=== PATIENT | male | born 1990 | race Caucasian/White ===

== ENCOUNTER 2020-09-17 19:36 | Emergency (ER) | payer MEDICAID, SELFPAY ==
[2020-09-17 19:47] VITALS: BP 116/75; PULSE 102; RESP 18; TEMP 36.6; O2SAT 98; BMI 28.1
[2020-09-17 19:50] VITALS: BP 117/80; PULSE 90; RESP 16; TEMP 37; O2SAT 97
--- NOTE | 2020-09-17 20:52 | ED.SKABFB ---
HPI - Skin/Abscess/Foreign Bdy General Chief complaint: Skin/Abscess/Foreign Body <Tayler Spencer NP - Last Filed: 09/17/20 21:02> Stated complaint: facial swelling <Tayler Spencer NP - Last Filed: 09/17/20 21:02> Time Seen by Provider: 09/17/20 19:55 <Tayler Spencer NP - Last Filed: 09/17/20 21:02> Source: patient <Tayler Spencer NP - Last Filed: 09/17/20 21:02> Mode of arrival: ambulatory <Tayler Spencer NP - Last Filed: 09/17/20 21:02> Limitations: no limitations <Tayler Spencer NP - Last Filed: 09/17/20 21:02> History of Present Illness HPI narrative: 30 yo male with past medical history of substance abuse currently on methadone x 3 days here with left facial tenderness/swelling and erythema since waking this morning. No fevers/chills. <Talyer Spencer NP - Last Filed: 09/17/20 21:02> MD complaint: other (redness/swelling/tenderness ) <Tayler Spencer NP - Last Filed: 09/17/20 21:02> Onset (ago): hour(s) <Tayler Spencer NP - Last Filed: 09/17/20 21:02> Tetanus up to date: no <Tayler Spencer NP - Last Filed: 09/17/20 21:02> Location: face <Tayler Spencer NP - Last Filed: 09/17/20 21:02> Severity: moderate <Tayler Spencer NP - Last Filed: 09/17/20 21:02> Quality: aching <Tayler Spencer NP - Last Filed: 09/17/20 21:02> Pain Consistency: intermittent <Tayler Spencer NP - Last Filed: 09/17/20 21:02> Relieving factors: none <Taylre Spencer NP - Last Filed: 09/17/20 21:02> Exacerbating factors: none <Tayler Spencer NP - Last Filed: 09/17/20 21:02> Context: none <Tayler Spencer NP - Last Filed: 09/17/20 21:02> Treatments prior to arrival: none <Tayler Spencer NP - Last Filed: 09/17/20 21:02> Related Data Allergies/Adverse reactions: Allergies Allergy/AdvReac Type Severity Reaction Status Date / Time No Known Allergies Allergy Unverified 09/17/20 19:47 <Tayler Spencer NP - Last Filed: 09/17/20 21:02> Review of Systems Review of Systems: Yes all other systems are reviewed and are negative <Tayler Spencer NP - Last Filed: 09/17/20 21:02> Constitutional: Constitutional: Reports no additional constitutional complaints, Denies body ache(s), Denies chills, Denies fever(s), Denies headache(s) and Denies weakness <Tayler Spencer NP - Last Filed: 09/17/20 21:02> Eyes: Eyes: Reports no additional eye complaints, Denies change in vision and Denies eye pain <Tayler Spencer NP - Last Filed: 09/17/20 21:02> ENT: Reports system reviewed and no additional complaints, except as documented, Denies dizziness, Denies headache(s), Denies nasal congestion, Denies nasal discharge and Denies neck pain <Tayler Spencer NP - Last Filed: 09/17/20 21:02> Comments: facial pain, swelling, dental pain <Tayler Spencer NP - Last Filed: 09/17/20 21:02> Cardiovascular: Cardiovascular: Reports no additional cardiovascular complaints, Denies chest pain, Denies leg edema and Denies dyspnea <Tayler Spencer NP - Last Filed: 09/17/20 21:02> Respiratory: Respiratory: Reports no additional respiratory complaints, Denies cough and Denies dyspnea <Tayler Spencer NP - Last Filed: 09/17/20 21:02> Gastrointestinal: Gastrointestinal: Reports no additional gastrointestinal complaints, Denies abdominal pain, Denies diarrhea, Denies nausea and Denies vomiting <Tayler Spencer NP - Last Filed: 09/17/20 21:02> Genitourinary: Genitourinary: Denies urinary incontinence <Tayler Spencer NP - Last Filed: 09/17/20 21:02> Musculoskeletal: Musculoskeletal: Reports no additional musculoskeletal complaints, Denies back pain, Denies arthralgias, Denies joint swelling, Denies neck pain, Denies numbness and Denies tingling <Tayler Spencer NP - Last Filed: 09/17/20 21:02> Integumentary/Breasts: Skin/Breast: Reports system reviewed and no additional complaints, except as docu and Denies rash <Tayler Spencer NP - Last Filed: 09/17/20 21:02> Neurologic: Reports system reviewed and no additional complaints, except as documented, Denies Abnormal speech present, Denies dizziness, Denies headache(s), Denies numbness, Denies tingling and Denies weakness <Tayler Spencer NP - Last Filed: 09/17/20 21:02> FORMERLY [facility], [facility] Past Medical History Attestation statement: The following information was validated with the patient. <Tayler Spencer NP - Last Filed: 09/17/20 21:02> Source: old records reviewed and nursing notes reviewed <Tayler Spencer NP - Last Filed: 09/17/20 21:02> Medical History: Medical History Opioid dependence <Tayler Spencer NP - Last Filed: 09/17/20 21:02> Social History Social History: Social History Alcohol intake: never Smoking Status: Current every day smoker Smoked in Last 30 Days: Yes Use of substances other than those prescribed or required for medical reasons: No Advance Directives: No Advance Directives Information Provided: No <Tayler Spencer NP - Last Filed: 09/17/20 21:02> Physical Exam Vital Signs: Vital Signs: Last Vital Signs Temp 98.6 F 09/17/20 19:50 Pulse 90 01/23/21 19:50 Resp 16 09/17/20 19:50 BP 117/80 09/17/20 19:50 Pulse Ox 97 09/17/20 19:50 Body Mass Index 28.1 <Tayler Spencer NP - Last Filed: 09/17/20 21:02> Vital Signs: Last Vital Signs Temp 98.6 F 09/17/20 19:50 Pulse 90 09/17/20 19:50 Resp 16 09/17/20 19:50 BP 117/80 09/17/20 19:50 Pulse Ox 97 09/17/20 19:50 Body Mass Index 28.1 <Sue Silva DO - Last Filed: 09/17/20 21:38> Const: General: cooperative, healthy appearing, comfortable and no acute distress <Tayler Spencer NP - Last Filed: 09/17/20 21:02> Orientation/consciousness: patient oriented x3 <Tayler Spencer NP - Last Filed: 09/17/20 21:02> Limitations: no limitations <Tayler Spencer NP - Last Filed: 09/17/20 21:02> HENMT: Other: Over the left mid face there is erythema/swelling and moderate tenderness with induration. It extends to just inferior to the eye. EOM intact. <Tayler Spencer NP - Last Filed: 09/17/20 21:02> Head: Yes normal to inspection <Tayler Spencer NP - Last Filed: 09/17/20 21:02> Ears: hearing grossly normal bilaterally <Tayler Spencer NP - Last Filed: 09/17/20 21:02> General nose exam: Normal external nose present <Tayler Spencer NP - Last Filed: 09/17/20 21:02> Mouth: Normal oral and palatal mucosa present <Tayler Spencer NP - Last Filed: 09/17/20 21:02> Teeth and gingiva: poor dentition (extensive dental caries, multiple missing teeth) <Tayler Spencer NP - Last Filed: 09/17/20 21:02> Throat: Yes posterior oropharynx normal <RINA Brandt Last Filed: 09/17/20 21:02> Eyes: General: appearance normal, both eyes and all related structures <Tayler Spencer NP - Last Filed: 09/17/20 21:02> Pupils: Equal, round and reactive pupils present <Tayler Spencer NP - Last Filed: 09/17/20 21:02> Neck: Neck: Yes normal visual inspection <Tayler Spencer NP - Last Filed: 09/17/20 21:02> Chest: Chest palpation & inspection: normal inspection of the chest <Tayler Spencer NP - Last Filed: 09/17/20 21:02> Resp: Effort & Inspection: normal respiratory effort <Tayler Spencer NP - Last Filed: 09/17/20 21:02> Auscultation: clear to auscultation bilaterally <Tayler Spencer NP - Last Filed: 09/17/20 21:02> Cardio: Rate: regular rate <Tayler Spencer NP - Last Filed: 09/17/20 21:02> Rhythm: regular rhythm <Tayler Spencer NP - Last Filed: 09/17/20 21:02> Peripheral pulses: Peripheral pulses 2+ throughout <Tayler Spencer NP - Last Filed: 09/17/20 21:02> GI: Inspection: Yes normal to inspection <Tayler Spencer NP - Last Filed: 09/17/20 21:02> Palpation (GI): Soft to palpation and nontender <Tayler Spencer NP - Last Filed: 09/17/20 21:02> Auscultation: normal bowel sounds <Tayler Spencer NP - Last Filed: 09/17/20 21:02> Back/Spine/Pelvis: Thoracic/Lumbar Spine: thoracic and lumbar spine normal to inspection <Tayler Spencer NP - Last Filed: 09/17/20 21:02> Skin: General skin exam: no rashes or lesions noted <Tayler Spencer NP - Last Filed: 09/17/20 21:02> Neuro: General: patient oriented x3, no focal motor deficits and normal sensation to monofilament <Tayler Spencer NP - Last Filed: 09/17/20 21:02> Cranial nerves: Yes Equal, round and reactive pupils present <Tayler Spencer NP - Last Filed: 09/17/20 21:02> Cognition (Neuro): normal cognition <Tayler Spencer NP - Last Filed: 09/17/20 21:02> Speech: No Abnormal speech present <Tayler Spencer NP - Last Filed: 09/17/20 21:02> Gait exam (Neuro): Normal gait present <Tayler Spencer NP - Last Filed: 09/17/20 21:02> Motor exam (neuro): 5/5 motor strength present throughout <Tayler Spencer NP - Last Filed: 09/17/20 21:02> Extrem: General: Yes normal to inspection <Tayler Spencer NP - Last Filed: 09/17/20 21:02> Course Course Course Narrative: 30 yo male here with left sided facial swelling, erythema, tenderness x 1 day. H/o IVDA-currently on methadone for last 3 days. No fevers, chills, body aches. Extensive dental caries. May be underlying abscess. Will need labs, CT facial bones with IV contrast to evaluate further. Antibiotics ordered. 2100-Sign out to Dr Silva pending above. <Tayler Spencer NP - Last Filed: 09/17/20 21:02>
--- NOTE | 2020-09-17 21:37 | CT_ITS ---
EXAMINATION: CT FACIAL BONES WITHOUT CONTRAST CLINICAL INFORMATION: Left-sided swelling right evaluate for abscess. COMPARISON: None TECHNIQUE: Axial 3 mm thin and reformatted 1.5 mm thin sagittal and coronal images of facial bones were obtained. This CT examination was performed using dose optimization techniques as appropriate, variously including the following: *Automated exposure control *Adjustment of mA and/or kV according to patient size (this includes techniques or standardized protocols for targeted exams where dose is matched to indication/reason for exam; i.e. extremities or head) *Use of iterative reconstruction technique DLP: 378 mGy-cm FINDINGS: There is no acute maxillofacial fracture. The pterygoid plates are intact. The zygomatic arches are intact. The lamina papyracea are intact. The orbital rims are intact. The paranasal sinuses are well-aerated. No air-fluid levels are seen. There is no deviation of the nasal septum. The ostiomeatal complexes are clear. The lamina papyracea are intact. The ethmoid roofs are symmetric. The carotid canals are normally covered by bone. There is a left buccal soft tissue density measuring 1.4 cm in length and is in the left anterior mandible. Best visualized on axial image 55/3. No adjacent bony erosive changes or periosteal thickening seen. There is no periapical cyst seen either. There is left maxillary soft tissues edema cellulitis. The mastoid air cells and visualized middle ear cavities are well-aerated. The orbits are normal. The TMJs are unremarkable. The imaged portions of the brain demonstrate no acute abnormality. CT/CT facial bones wo con IMPRESSION: There is a focal density left buccal space question edema or cellulitis. There is no adjacent bony abnormality of the mandible or periapical disease to suspect any underlying abscess. There is left maxillary soft tissues cellulitis.
[2020-09-17] MEDS: oxyCODONE HCl Immed Release 5 MG TABLET 10 MG PO (21:43)
--- NOTE | 2020-09-17 21:47 | PC.NURSE ---
Physican unable to place IV with ultrasound. All sites assessed. Patient does not want central line which was offered. Medicated for pain and given antibiotic. Pt on phone planning on leaving. Agreeable to get head ct done w/o contrast done first.
--- NOTE | 2020-09-17 22:17 | PC.NURSE ---
Patient sleeping on stretcher. Pending ct results.
== END 2020-09-17 22:34 | disposition left against medical advice (07) ==
PROVIDERS: Emergency Provider Emergency Medicine Emergency Medical Services
DX: K02.9 Dental caries, unspecified (principal); F17.200 Nicotine dependence, unspecified, uncomplicated; F11.90 Opioid use, unspecified, uncomplicated; Z71.6 Tobacco abuse counseling; Z79.899 Other long term (current) drug therapy
CPT/HCPCS: 70486; 87040; 99284

== ENCOUNTER 2020-11-27 01:51 | Emergency (ER) | payer MEDICAID, SELFPAY ==
[2020-11-27 02:32] VITALS: BP 122/84; BP 138/65; PULSE 108; PULSE 110; RESP 13; TEMP 36.9; O2SAT 96; O2SAT 98; BMI 56.9
--- NOTE | 2020-11-27 02:37 | ED.OVERDOSE ---
HPI - Overdose General Chief Complaint: Overdose Stated Complaint: substance use Time Seen by Provider: 11/27/20 02:36 Source: patient and EMS Mode of arrival: EMS Limitations: no limitations History of Present Illness HPI Narrative: 30-year-old male history of IV drug abuser male [place] heroin, patient used 10 bags of IV heroin this morning, found unresponsive patient was given total of 8 mg of Narcan nasally by EMS and patient started to respond, patient vomited once. Related Data Previous Rx's Medication Instructions Recorded clindamycin HCl 300 mg PO Q8H 7 Days #21 cap 09/17/20 Allergies Allergy/AdvReac Type Severity Reaction Status Date / Time No Known Allergies Allergy Unverified 09/17/20 19:47 Review of Systems Review of Systems: All other systems are reviewed and are negative Constitutional: Reports as per HPI and Reports no additional constitutional complaints Eyes: Reports as per HPI and Reports no additional eye complaints Reports system reviewed and no additional complaints, except as documented Cardiovascular: Reports as per HPI and Reports no additional cardiovascular complaints Respiratory: Reports as per HPI and Reports no additional respiratory complaints Gastrointestinal: Reports as per HPI and Reports no additional gastrointestinal complaints Genitourinary: Reports no additional female genitourinary complaints Musculoskeletal: Reports no additional musculoskeletal complaints Skin/Breast: Reports system reviewed and no additional complaints, except as docu Psychiatric: Reports no additional psychiatric complaints Endocrine: Reports no additional endocrine complaints Hematologic/Lymphatic: Reports no additional hematologic/lymphatic complaints Allergic/Immunologic: Reports no additional allergic/immunologic complaints Reports system reviewed and no additional complaints, except as documented and Reports Abnormal speech present FORMERLY [facility] Past Medical History Medical History Opioid dependence Social History Social History Alcohol intake: never Smoking Status: Never smoker Use of substances other than those prescribed or required for medical reasons: Yes Substance Use Type: Heroin Substance Use Frequency: Chronic Longstanding Advance Directives: No Advance Directives Information Provided: No Physical Exam Vital Signs: Vital Signs: Last Vital Signs Temp 98.5 F 11/27/20 02:32 Pulse 108 H 11/27/20 02:32 Resp 13 11/27/20 02:32 BP 138/65 11/27/20 02:32 Pulse Ox 96 04/04/21 02:32 Body Mass Index 56.9 Vital signs have been reviewed as appeared to be correct. Blood pressure normal. Heart rate normal. Respiration rate normal. Temperature normal. Oxygen saturation normal. Appearance: Alert. Oriented X3. No acute distress. Head: Normal external exam. Normocephalic. Atraumatic. No Guerrero signs noted. No raccoon eyes noted Eyes: PERRLA. EOMI. Conjunctiva and sclera normal. Eyelids normal. ENT: TM's Normal. Pharynx normal. Uvula midline. Moist mucous membranes. No trismus noted. No drooling noted. No muffled voice noted. Neck: Normal inspection. Neck supple. FROM. No adenopathy. Thyroid Normal. No meningeal signs. No neck mass noted. CVS: Normal heart rate and rhythm. Heart sound normal. No murmurs noted. Pulses normal throughout. Respiratory: No respiratory distress. Painless inspiration. Breath sounds normal. No wheezes/rales/rhonchi noted. Chest nontender. No accessory muscle usage noted or decreased air movement noted. Abdomen: Soft and nontender. Bowel sounds normal in all 4 quadrants. No distention noted. No organomegaly noted. No visible injury noted. Back: No CVA tenderness. Full range of motion noted. Skin: Skin warm and dry. Normal skin color. Normal skin turgor. No rashes/lesions/lacerations noted. Extremities: No lower extremity edema. Extremities exhibit normal range of motion. Extremities nontender. Neuro: Oriented X 3. No motor deficit. No sensory deficit. Reflexes normal. Course Course Course Narrative: Assessment and plan. 30-year-old male IV drug abuser, who was found unresponsive by EMS after using 10 bags of heroin, patient overdosed unintentionally, no SI, no HI. patient required Narcan total 8 mg nasally. Patient was observed in the emergency department for over 2 hours remained awake with stable vital signs. Discharge Plan Discharge Clinical Impression: Overdose Qualifiers: Encounter type: initial encounter Injury intent: accidental or unintentional Qualified Code(s): T50.901A - Poisoning by unspecified drugs, medicaments and biological substances, accidental (unintentional), initial encounter Patient Disposition: Home, Self-Care Instructions: Polysubstance Abuse (ED) Additional Instructions: Follow-up with your primary doctor. Prescriptions: No Action clindamycin HCl 300 mg capsule 300 mg PO Q8H 7 Days Qty: 21 RF: 0 Interventions: ED Discharge Assessment Last Done: 11/27/20 04:12
--- NOTE | 2020-11-27 03:35 | PC.NURSE ---
Per physician he will be observed to for an 1 1/2.
== END 2020-11-27 04:24 | disposition home or self-care (01) ==
LOC: HO.ED 02:49
PROVIDERS: Emergency Provider Emergency Medicine
DX: R40.4 Transient alteration of awareness (principal); T40.1X1A Poisoning by heroin, accidental (unintentional), initial encounter; Y92.9 Unspecified place or not applicable; F11.20 Opioid dependence, uncomplicated
CPT/HCPCS: 99284

== ENCOUNTER 2021-12-31 23:13 | Emergency (ER) | payer MEDICAID, SELFPAY ==
--- NOTE | ~2021-12-31 | CT_ITS ---
EXAMINATION: CT HEAD WITHOUT CONTRAST CLINICAL INFORMATION: Seizure, rule out bleed, stroke, mass effect COMPARISON: 12/26/2012 TECHNIQUE: Contiguous axial imaging was performed from the skull base to vertex without intravenous administration of contrast. This CT examination was performed using dose optimization techniques as appropriate, variously including the following: *Automated exposure control *Adjustment of mA and/or kV according to patient size (this includes techniques or standardized protocols for targeted exams where dose is matched to indication/reason for exam; i.e. extremities or head) *Use of iterative reconstruction technique DLP: 745 mGy-cm FINDINGS: There is no evidence of acute intracranial hemorrhage or territorial infarction. No abnormal mass effect or midline shift is seen. [place] to white matter differentiation is well preserved. No extra-axial fluid collections are identified. The ventricles are normal in size. There is no abnormal attenuation within the brain parenchyma. The osseous structures and soft tissues are normal. There is mucosal thickening of the left maxillary sinus. Mild opacification of the bilateral ethmoid air cells. The mastoid air cells are well-aerated. CT/CT head/brain wo con IMPRESSION: No acute intracranial pathology.
[2021-12-31 23:22] VITALS: BP 152/67; PULSE 129; O2SAT 96
[2021-12-31 23:23] VITALS: BP 107/62; PULSE 118; RESP 15; TEMP 37.4; O2SAT 96; BMI 26.9
--- NOTE | 2022-01-01 00:25 | ED_ITS ---
HPI - Seizure General Chief Complaint: Seizure Stated Complaint: siezure Time Seen by Provider: 12/31/21 23:54 Source: patient Mode of arrival: EMS Limitations: no limitations History of Present Illness HPI Narrative: 31-year-old male who presents emergency department for evaluation of seizure. The patient states that he has no memory of his seizure. He states that he gets 2-3 seizures per month. He states that he is not on anti seizure medications. According to the nursing notes, the patent had a a seizure at 22:45 hours. This was witnessed by his girlfriend. The seizure lasted 3 minutes. When EMS arr ived, patient was postictal and was in the left lying position for recovery. Patient was then transported to the emergency department for evaluation. At the time of my evaluation, the patient is awake and alert, he states that he is feeling shaky but he denies headache, neck pain nausea, vomiting, chest pain, abdominal pain or extremity pain. The patient denied alcohol and drug use. In reviewing his emergency department records, he was seen on 11/27/2020 for opiate overdose. MD complaint: seizure Onset (ago): hour(s) (1) Description of Episode: loss of consciousness and tonic-clonic movement Duration of episode: 3 -: minutes(s) Witnessed: Yes - by Other (Girlfriend) Trauma: No Seizure History: Yes Place: Home Possible Precipitating Event: none Associated symptoms: other (Shakiness) Treatments prior to arrival: none Related Data Previous Rx's Medication Instructions Recorded clindamycin HCl 300 mg capsule 300 mg PO Q8H 7 Days #21 cap 09/17/20 levetiracetam 500 mg tablet 500 mg PO BID #60 tab 01/01/22 (Keppra) Allergies Allergy/AdvReac Type Severity Reaction Status Date / Time No Known Allergies Allergy Unverified 09/17/20 19:47 Review of Systems Review of Systems: Yes all other systems are reviewed and are negative [facility] Past Medical History [facility] Narrative: Past medical history: Opiate dependence with injection heroin use, cellulitis. Past surgical history: Appendectomy. Social history: Patient states he smokes 2 packs of cigarettes per day times 10 years. He denies alcohol use. He did deny drug use but he does have a previous history of opiate use. Medical History Opioid dependence Social History Social History Alcohol intake: never Substance Use Type: Heroin Advance Directives: No Advance Directives Information Provided: No Physical Exam Vital Signs: Vital Signs: Last Vital Signs Temp 98.4 F 01/01/22 02:00 Pulse 77 01/01/22 02:00 Resp 17 01/01/22 02:00 BP 113/72 01/01/22 02:00 Pulse Ox 96 01/01/22 02:00 BMI result Body Mass Index 26.9 Const: General: cooperative and no acute distress Orientation/consciousness: oriented to person and oriented to place Limitations: no limitations HEENT: Head: Yes normal to inspection, Yes normocephalic and Yes atraumatic Ears: external ears normal General nose exam: Normal external nose present Face and sinus: Yes normal facial exam Mouth: Normal oral and palatal mucosa present Throat: Yes posterior oropharynx normal Eyes: General: appearance normal, both eyes and all related structures Pupils: Equal, round and reactive pupils present Neck: Neck: Yes normal visual inspection, Yes no lymphadenopathy, Yes trachea midline and Yes supple Chest: Chest palpation & inspection: normal inspection of the chest and normal palpation of entire chest wall Resp: Effort & Inspection: normal respiratory effort and able to speak in complete sentences Auscultation: clear to auscultation bilaterally Cardio: Rate: regular rate Rhythm: regular rhythm Heart sounds: S1 normal heart sound present, S2 normal heart sound present and no murmurs GI: Inspection: Yes normal to inspection Palpation (GI): Soft to palpation, nontender and no guarding Auscultation: normal bowel sounds : General: Yes no CVA tenderness Back/Spine/Pelvis: Back: no CVA tenderness Skin: General skin exam: no rashes or lesions noted Neuro: General: oriented to person and oriented to place Cranial nerves: Yes CN's II-XII intact bilaterally and Yes Equal, round and reactive pupils present Cognition (Neuro): normal cognition Motor exam (neuro): 5/5 motor strength present throughout Extrem: General: Yes normal to inspection Psych: Appearance: grossly normal Speech and movement: Normal speech and movement present Affect: normal affect Attitude: cooperative Thought process: Normal thought process present Thought content: Normal thought content present Course Course Course Narrative: 31-year-old male who presents emergency department for evaluation of a witnessed tonic clonic seizure which lasted 3 minutes. The patient was postictal according to the paramedics. On arrival to the emergency department the patient was back to his baseline. At the time my evaluation the patient is awake and alert, he has no memory of the seizure. He states that he has had 2-3 seizures per month but he has never been treated with anti seizure medicines or evaluated by a neurologist. Patient does have a history of opiate drug use but he denied using drugs this evening. He also denies alcohol use. Vital signs did reveal an elevated heart rate of 118. His exam was otherwise unremarkable. Patient was ordered to get normal saline x1 L and Ativan 1 mg IV. I will also treat the patient with Keppra 500 mg orally. Laboratory evaluation was ordered. The patient has not had a documented CT head here at this facility therefore I will get a CT head without IV contrast 0239 : Laboratory evaluation: WBC elevated 14,000. Platelet count elevated 451,000. ETOH below detectable limits. Radiology evaluation: CT scan of the brain revealed no acute pathology as per radiology reading. The patient had a witnessed tonic-clonic seizure with a postictal period. Patient states that he gets these several times a month. This point I am going to start the patient on Keppra 500 mg twice a day. The patient will need to follow-up with neurology for further management. He was given printed and verbal instructions and discharged home. MDM - Seizure Lab Data Result diagrams: 01/01/22 00:36 01/01/22 00:36 Labs: Lab Results 01/01/22 01/01/22 01/01/22 Range/Units 00:36 00:36 00:36 WBC 14.3 H (4.8-10.8) X10*3/uL RBC 4.96 (4.60-5.80) X10*6/uL Hgb 14.8 (14.0-18.0) g/dl Hct 44.6 (42.0-52.0) % MCV 89.9 (80.0-98.0) fL MCH 29.8 (27.0-33.0) pg MCHC 33.2 (31.0-36.0) g/dl RDW 12.8 (11.0-16.0) % Plt Count 451 H (160-400) X10*3/uL MPV 8.9 L (9.4-12.4) fL Immature Gran % (Auto) 0.5 H (0.0-0.4) % Neut % (Auto) 78.2 H (45-73) % Lymph % (Auto) 16.4 L (20-40) % [place] % (Auto) 4.7 (2-11) % Eos % (Auto) 0.1 (0-4) % Baso % (Auto) 0.1 (0-2) % Lymph # (Auto) 2.4 (1.2-4.9) X10*3/uL [place] # (Auto) 0.7 (0.1-1.2) X10*3/uL Eos # (Auto) 0.0 (0.0-0.4) X10*3/uL Baso # (Auto) 0.0 (0.0-0.2) X10*3/uL Abs Immat Gran (auto) 0.07 H (0.00-0.03) X10*3/uL Absolute Neuts (auto) 11.2 H (2.0-8.3) x10*3/uL Absolute Nucleated RBC 0.000 (0.0-0.012) X10*3/uL Nucleated RBC % (auto) 0.0 (0.0-0.2) /100WBC Sodium 138 (135-145) mmol/L Potassium 4.8 (3.3-5.1) mmol/L Chloride 104 (96-108) mmol/L Carbon Dioxide 23 (22-29) mmol/L Anion Gap 16 (12-20) BUN 10 (9-16) mg/dL Creatinine 0.81 (0.5-1.4) mg/dL Estim Creat Clear Calc 130.1 Estimated GFR > 60 Random Glucose 114 (60-115) mg/dL Calcium 10.0 (8.4-10.2) mg/dL Total Bilirubin < 0.2 (0.0-1.0) mg/dL AST 37 (5-37) U/L ALT 31 (0-40) U/L Alkaline Phosphatase 114 (39-117) U/L Total Protein 8.1 H (6.5-8.0) g/dL Albumin 4.2 (3.5-5.0) g/dL Lipase 27 (8-78) U/L Ethyl Alcohol < 10 mg/dL Discharge Plan Discharge Clinical Impression: Epileptic seizure Patient Disposition: Home, Self-Care Instructions: New-Onset Seizure in Adults (ED) Additional Instructions: Your presentation to the emergency department today is concerning for epileptic seizures. Your blood work was normal. The CT scan of your brain did not reveal any significant abnormalities. Your treated with Ativan 1 mg IV. I also gave you Keppra 500 mg orally. This is an anti seizure medicine. I am starting you on Keppra 500 mg twice a day. I want you to follow-up with 1 of our neurologists for a re-evaluation and for further workup of your seizure disorder. Call the urologist's office today to try to make a follow-up appointment within 2 weeks. Follow-up with your doctor in 2 days. Please return to the emergency department if your symptoms get worse or if you develop any symptoms that are concerning to you. Prescriptions: New levetiracetam [Keppra] 500 mg tablet 500 mg PO BID Qty: 60 0RF No Action clindamycin HCl 300 mg capsule 300 mg PO Q8H 7 Days Qty: 21 0RF Referrals: Lara Spears MD [Physician] - 2 weeks
[2022-01-01 00:31] VITALS: BP 118/79; PULSE 108; RESP 16; O2SAT 98
[2022-01-01 00:42] LABS: Basophils Percent Auto 0.1 % (0-2); Eosinophils Percent Auto 0.1 % (0-4); Hematocrit 44.6 % (42.0-52.0); Hemoglobin 14.8 g/dl (14.0-18.0); Imm Gran Abs Auto 0.07 X10*3/uL (0.00-0.03); Imm Gran Pct Auto 0.5 % (0.0-0.4); Lymphocytes Absolute Auto 2.4 X10*3/uL (1.2-4.9); Lymphocytes Percent Auto 16.4 % (20-40); MANUAL DIFF FLAG NO; Mean Corpuscular HGB Conc 33.2 g/dl (31.0-36.0); Mean Corpuscular Hemoglobin 29.8 pg (27.0-33.0); Mean Corpuscular Volume 89.9 fL (80.0-98.0); Mean Platelet Volume 8.9 fL (9.4-12.4); Monocytes Absolute Auto 0.7 X10*3/uL (0.1-1.2); Monocytes Percent Auto 4.7 % (2-11); Neutrophils Absolute Auto 11.2 x10*3/uL (2.0-8.3); Neutrophils Percent Auto 78.2 % (45-73); Platelet Count 451 X10*3/uL (160-400); Red Blood Count 4.96 X10*6/uL (4.60-5.80); Red Cell Distribution Width 12.8 % (11.0-16.0); White Blood Count 14.3 X10*3/uL (4.8-10.8)
[2022-01-01 00:55] LABS: Ethanol < 10 mg/dL
[2022-01-01 01:01] LABS: Alanine Aminotransferase 31 U/L (0-40); Albumin Level 4.2 g/dL (3.5-5.0); Alkaline Phosphatase 114 U/L (39-117); Anion Gap 16 (12-20); Aspartate Amino Transferase 37 U/L (5-37); Bilirubin Total < 0.2 mg/dL (0.0-1.0); Blood Urea Nitrogen 10 mg/dL (9-16); Carbon Dioxide 23 mmol/L (22-29); Chloride 104 mmol/L (96-108); Creatinine Clr Calc Pharmacy 130.1; Estimated Glomerular Filt Rate > 60; Glucose Random 114 mg/dL (60-115); Lipase 27 U/L (8-78); Potassium 4.8 mmol/L (3.3-5.1); Sodium 138 mmol/L (135-145); Total Protein 8.1 g/dL (6.5-8.0)
[2022-01-01] MEDS: LORazepam 2 MG/ML VIAL 1 MG IVPUSH (01:08)
[2022-01-01] MEDS: 0.9 % Sodium Chloride 1,000 ML 999 ML IV (01:08)
[2022-01-01] MEDS: levETIRAcetam 500 MG TABLET PO (01:58)
[2022-01-01 02:00] VITALS: BP 113/72; PULSE 77; RESP 17; TEMP 36.9; O2SAT 96
[2022-01-01 03:18] VITALS: BP 103/66; PULSE 65; RESP 18; TEMP 36.8; O2SAT 95
== END 2022-01-01 03:28 | disposition home or self-care (01) ==
PROVIDERS: Emergency Provider Emergency Medicine Emergency Medical Services
DX: G40.909 Epilepsy, unspecified, not intractable, without status epilepticus (principal); Z79.899 Other long term (current) drug therapy; F11.90 Opioid use, unspecified, uncomplicated
CPT/HCPCS: 36415; 70450; 80053; 82077; 83690; 85025; 96361; 96374; 99284; J2060

== ENCOUNTER 2023-07-23 15:51 | Emergency (ER) | payer OTHER, SELFPAY ==
--- NOTE | ~2023-07-23 | XR_ITS ---
EXAMINATION: XR CHEST CLINICAL INFORMATION: Shortness of breath. COMPARISON: Chest x-ray April 04, 2016 TECHNIQUE: Frontal view of the chest was obtained. 5:42 PM FINDINGS: No significant abnormality is noted involving the heart, lungs, mediastinum, bony thorax or soft tissues. XR/XR chest 1V IMPRESSION: Unremarkable examination.
[2023-07-23 16:22] VITALS: BP 162/94; PULSE 101; RESP 18; TEMP 36.1; O2SAT 96; BMI 35.0
--- NOTE | 2023-07-23 16:23 | ECG_ITS ---
Test Reason : general malaise Blood Pressure : / mmHG Vent. Rate : 094 BPM Atrial Rate : 094 BPM P-R Int : 136 ms QRS Dur : 102 ms QT Int : 330 ms P-R-T Axes : 068 009 024 degrees QTc Int : 412 ms Normal sinus rhythm Nonspecific T wave abnormality Abnormal ECG When compared with ECG of 26-NOV-2018 09:52, ST no longer elevated in Anterior leads Nonspecific T wave abnormality now evident in Anterior leads Nonspecific T wave abnormality is new T wave amplitude has decreased in Anterolateral leads Referred By: Natalee Fuchs Electronically Signed By:KEY CAMPOS MD
--- NOTE | 2023-07-23 16:24 | ED.GENADULT ---
HPI - General Adult General Chief complaint: Upper Respiratory Symptoms Stated complaint: flu like symptoms Related Data Previous Rx's ?Medication ?Instructions ?Recorded clindamycin HCl 300 mg capsule 300 mg PO Q8H 7 days #21 caps 09/17/20 levetiracetam 500 mg tablet 500 mg PO BID #60 tabs 01/01/22 (Keppra) Allergies Allergy/AdvReac Type Severity Reaction Status Date / Time No Known Allergies Allergy Verified 01/07/24 18:56 PMFSH Past Medical History Medical History Opioid dependence Social History Social History Alcohol intake: never Substance Use Type: Heroin Advance Directives: No Advance Directives Information Provided: No Do you have a plan to hurt others: No Plan Physical Exam ED Vital Signs: BMI result Body Mass Index 35.0 Course Course Course Narrative: This is an RME: Additional HPI, ROS, PE not included below will be deferred to primary provider. 33-year-old male on methadone therapy presents for evaluation of 4 days of productive cough, congestion, multiple episodes of vomiting, shortness of breath, and chest pain which he attributes to vomiting. Plan: Labs, CXR, EKG, viral swabs Medical Decision Making Lab Data 07/23/23 17:08 07/23/23 17:08 Labs: Lab Results 07/23/23 Range/Units 17:08 WBC 16.2 H (4.8-10.8) X10*3/uL RBC 5.07 (4.60-5.80) X10*6/uL Hgb 15.4 (14.0-18.0) g/dl Hct 45.2 (42.0-52.0) % MCV 89.2 (80.0-98.0) fL MCH 30.4 (27.0-33.0) pg MCHC 34.1 (31.0-36.0) g/dl RDW 12.7 (11.0-16.0) % Plt Count TNP MPV 10.1 (9.4-12.4) fL Immature Gran % (Auto) 0.6 H (0.0-0.4) % Neut % (Auto) 65.6 (45-73) % Lymph % (Auto) 25.8 (20-40) % [place] % (Auto) 6.6 (2-11) % Eos % (Auto) 1.0 (0-4) % Baso % (Auto) 0.4 (0-2) % Lymph # (Auto) 4.2 (1.2-4.9) X10*3/uL [place] # (Auto) 1.1 (0.1-1.2) X10*3/uL Eos # (Auto) 0.2 (0.0-0.4) X10*3/uL Baso # (Auto) 0.1 (0.0-0.2) X10*3/uL Abs Immat Gran (auto) 0.10 H (0.00-0.03) X10*3/uL Absolute Neuts (auto) 10.6 H (2.0-8.3) x10*3/uL Absolute Nucleated RBC 0.000 (0.0-0.012) X10*3/uL Nucleated RBC % (auto) 0.0 (0.0-0.2) /100WBC Smear Tech's Comments VERIFIED Sodium 138 (135-145) mmol/L Potassium 4.9 (3.3-5.1) mmol/L Chloride 104 (96-108) mmol/L Carbon Dioxide 20 L (22-29) mmol/L Anion Gap 19 (12-20) BUN 11 (9-16) mg/dL Creatinine 1.18 (0.5-1.4) mg/dL Estim Creat Clear Calc 106.1 Estimated GFR > 60 Random Glucose 145 H (60-115) mg/dL Calcium 10.1 (8.4-10.2) mg/dL Magnesium 2.7 H (1.6-2.6) mg/dL Total Bilirubin 0.2 (0.0-1.0) mg/dL AST 58 H (5-37) U/L ALT 52 H (0-40) U/L Alkaline Phosphatase 137 H (39-117) U/L Total Protein 8.2 H (6.5-8.0) g/dL Albumin 4.9 (3.5-5.0) g/dL Influenza Type A (PCR) NEGATIVE (Negative) Influenza Type B (PCR) NEGATIVE (Negative) RSV RNA Qual (PCR) NEGATIVE (Negative) SARS-CoV-2 RNA (RT-PCR) NEGATIVE (Negative) Discharge Plan Discharge Clinical Impression: Eloped from emergency department Patient Disposition: Left W/O Completing Treatment Prescriptions: No Action clindamycin HCl 300 mg capsule 300 mg PO Q8H 7 Days Qty: 21 0RF levetiracetam [Keppra] 500 mg tablet 500 mg PO BID Qty: 60 0RF Discharge Date/Time: 07/23/23 19:14
[2023-07-23 18:00] LABS: Influenza A PCR NEGATIVE (Negative); Influenza B PCR NEGATIVE (Negative); Resp Syncy Virus RNA Qual PCR NEGATIVE (Negative); SARS COV2 PCR INHOUSE NEGATIVE (Negative)
[2023-07-23 18:16] LABS: Alanine Aminotransferase 52 U/L (0-40); Albumin Level 4.9 g/dL (3.5-5.0); Alkaline Phosphatase 137 U/L (39-117); Anion Gap 19 (12-20); Aspartate Amino Transferase 58 U/L (5-37); Bilirubin Total 0.2 mg/dL (0.0-1.0); Blood Urea Nitrogen 11 mg/dL (9-16); Calcium 10.1 mg/dL (8.4-10.2); Carbon Dioxide 20 mmol/L (22-29); Chloride 104 mmol/L (96-108); Creatinine Clr Calc Pharmacy 106.1; Estimated Glomerular Filt Rate > 60; Glucose Random 145 mg/dL (60-115); Magnesium 2.7 mg/dL (1.6-2.6); Potassium 4.9 mmol/L (3.3-5.1); Sodium 138 mmol/L (135-145); Total Protein 8.2 g/dL (6.5-8.0)
[2023-07-23 18:23] LABS: Basophils Absolute Auto 0.1 X10*3/uL (0.0-0.2); Basophils Percent Auto 0.4 % (0-2); Eosinophils Absolute Auto 0.2 X10*3/uL (0.0-0.4); Hematocrit 45.2 % (42.0-52.0); Hemoglobin 15.4 g/dl (14.0-18.0); Imm Gran Pct Auto 0.6 % (0.0-0.4); Lymphocytes Absolute Auto 4.2 X10*3/uL (1.2-4.9); Lymphocytes Percent Auto 25.8 % (20-40); MANUAL DIFF FLAG SCAN; Mean Corpuscular HGB Conc 34.1 g/dl (31.0-36.0); Mean Corpuscular Hemoglobin 30.4 pg (27.0-33.0); Mean Corpuscular Volume 89.2 fL (80.0-98.0); Mean Platelet Volume 10.1 fL (9.4-12.4); Monocytes Absolute Auto 1.1 X10*3/uL (0.1-1.2); Monocytes Percent Auto 6.6 % (2-11); Neutrophils Absolute Auto 10.6 x10*3/uL (2.0-8.3); Neutrophils Percent Auto 65.6 % (45-73); PLT CLUMP 1; Red Blood Count 5.07 X10*6/uL (4.60-5.80); Red Cell Distribution Width 12.7 % (11.0-16.0); SCAN SMEAR FLAG 1
[2023-07-23 18:28] LABS: White Blood Count 16.2 X10*3/uL (4.8-10.8)
[2023-07-23 19:28] LABS: SLIDE REVIEW VERIFIED
== END 2023-07-23 19:14 | disposition left against medical advice (07) ==
PROVIDERS: Physician Assistant; Emergency Provider Emergency Medicine
DX: R05.9 Cough, unspecified (principal); R06.02 Shortness of breath; R07.9 Chest pain, unspecified; Z20.822 Contact with and (suspected) exposure to COVID-19; Z20.828 Contact with and (suspected) exposure to other viral communicable diseases; F11.20 Opioid dependence, uncomplicated
CPT/HCPCS: 0241U; 36415; 71045; 80053; 83735; 85025; 93005; 99281; 99283

== ENCOUNTER 2024-01-07 18:03 | Emergency (ER) | payer OTHER, SELFPAY ==
--- NOTE | ~2024-01-07 | XR_ITS ---
EXAMINATION:XR ankle RT 2V, XR ankle LT min 3V CLINICAL INFORMATION: Reason for Exam fall COMPARISON: None TECHNIQUE: AP, lateral, and mortise views of the ankle. 3 views each side for total of 6 views. FINDINGS: There is no fracture or dislocation. Ankle mortise is preserved. Tibial plafond and talar dome are intact. Medial and lateral malleoli are properly aligned. Subtalar joint is normal. There is no osteolytic or osteoblastic lesions. XR/XR ankle LT min 3V IMPRESSION: No fracture or dislocation.
--- NOTE | ~2024-01-07 | XR_ITS ---
EXAMINATION:XR ankle RT 2V, XR ankle LT min 3V CLINICAL INFORMATION: Reason for Exam fall COMPARISON: None TECHNIQUE: AP, lateral, and mortise views of the ankle. 3 views each side for total of 6 views. FINDINGS: There is no fracture or dislocation. Ankle mortise is preserved. Tibial plafond and talar dome are intact. Medial and lateral malleoli are properly aligned. Subtalar joint is normal. There is no osteolytic or osteoblastic lesions. XR/XR ankle RT 2V IMPRESSION: No fracture or dislocation.
--- NOTE | ~2024-01-07 | XR_ITS ---
EXAMINATION: XR LUMBOSACRAL SPINE CLINICAL INFORMATION: Fall COMPARISON: None available. TECHNIQUE: Three views of the lumbosacral spine. FINDINGS: The vertebral bodies and posterior elements are normal. The disc spaces are preserved and the vertebral alignment is normal. The paraspinal soft tissues are normal. XR/XR lumbar spine 2-3V IMPRESSION: No fracture or dislocation.
--- NOTE | ~2024-01-07 | XR_ITS ---
EXAMINATION: XR knee LT 4V, XR knee RT 4V CLINICAL INFORMATION: Reason for Exam fall COMPARISON: None available at the time of this dictation. TECHNIQUE: frontal, lateral, tunnel and patella sunrise views 4 views each side total 8 views.. FINDINGS: BONES: No fracture or dislocation is present. JOINTS: Joint spaces are preserved. Articular surfaces are smooth. No joint effusion on either size. SOFT TISSUE: Normal XR/XR knee LT 4V IMPRESSION: No fracture or dislocation.
--- NOTE | ~2024-01-07 | XR_ITS ---
EXAMINATION: XR knee LT 4V, XR knee RT 4V CLINICAL INFORMATION: Reason for Exam fall COMPARISON: None available at the time of this dictation. TECHNIQUE: frontal, lateral, tunnel and patella sunrise views 4 views each side total 8 views.. FINDINGS: BONES: No fracture or dislocation is present. JOINTS: Joint spaces are preserved. Articular surfaces are smooth. No joint effusion on either size. SOFT TISSUE: Normal XR/XR knee RT 4V IMPRESSION: No fracture or dislocation.
--- NOTE | ~2024-01-07 | CT_ITS ---
EXAMINATION: CT CERVICAL SPINE WITHOUT CONTRAST CLINICAL INFORMATION: Fall. Head strike. COMPARISON: None available at time of dictation. TECHNIQUE: Noncontrast computed tomography of the cervical spine was performed. This CT examination was performed using dose optimization techniques as appropriate, variously including the following: *Automated exposure control *Adjustment of mA and/or kV according to patient size (this includes techniques or standardized protocols for targeted exams where dose is matched to indication/reason for exam; i.e. extremities or head) *Use of iterative reconstruction technique DLP: 482 mGy-cm FINDINGS: Cervical spinal alignment is anatomic in the sagittal projection. The facet joints demonstrate anatomic alignment. Vertebral body heights are preserved. Intervertebral disc space heights are preserved. Prevertebral soft tissue is normal in appearance. Paraspinal soft tissue is within normal limits. There is no acute cervical spine fracture. Lung apices are clear. Thyroid gland is normal in appearance. CT/CT cervical spine wo IV con IMPRESSION: No acute osseous cervical spine abnormality. Fleischner guidelines were followed.
--- NOTE | ~2024-01-07 | XR_ITS ---
EXAMINATION: XR CHEST CLINICAL INFORMATION: Chest pain COMPARISON: None available. TECHNIQUE: Frontal view of the chest was obtained. FINDINGS: No significant abnormality is noted involving the heart, lungs, mediastinum, bony thorax or soft tissues. XR/XR chest 1V IMPRESSION: No radiographic evidence of acute cardiopulmonary disease.
--- NOTE | ~2024-01-07 | CT_ITS ---
EXAMINATION: CT HEAD WITHOUT CONTRAST CLINICAL INFORMATION: Head strike. COMPARISON: CT head dated 01/01/2022. TECHNIQUE: Contiguous axial imaging was performed from the skull base to vertex without intravenous administration of contrast. This CT examination was performed using dose optimization techniques as appropriate, variously including the following: *Automated exposure control *Adjustment of mA and/or kV according to patient size (this includes techniques or standardized protocols for targeted exams where dose is matched to indication/reason for exam; i.e. extremities or head) *Use of iterative reconstruction technique DLP: 1193 mGy-cm FINDINGS: There is no acute intracranial hemorrhage. There is no evidence of acute/subacute cerebral or cerebellar infarction. There is no midline shift or mass effect. There is no extra-axial fluid collection. The ventricles are normal in size. The orbits are symmetric and within normal limits. The calvarium is intact. The visualized paranasal sinuses and mastoid air cells are well aerated. CT/CT head/brain wo IV con IMPRESSION: No acute intracranial abnormality.
[2024-01-07 18:51] VITALS: BP 104/74; PULSE 111; RESP 18; TEMP 36.4; O2SAT 98; BMI 35.0
--- NOTE | 2024-01-07 19:02 | ED.GENADULT ---
HPI - General Adult General Chief complaint: Fall Stated complaint: concussion/fell on front stairs History of Present Illness HPI narrative: Left without completion of ED provider. Related Data Previous Rx's ?Medication ?Instructions ?Recorded clindamycin HCl 300 mg capsule 300 mg PO Q8H 7 days #21 caps 09/17/20 levetiracetam 500 mg tablet 500 mg PO BID #60 tabs 01/01/22 (Keppra) Allergies Allergy/AdvReac Type Severity Reaction Status Date / Time No Known Allergies Allergy Verified 01/07/24 18:56 PMF Past Medical History Medical History Opioid dependence Social History Social History Alcohol intake: never Substance Use Type: Heroin Advance Directives: No Advance Directives Information Provided: No Do you have a plan to hurt others: No Plan Physical Exam ED Vital Signs: Vital Signs - 24 hr 01/07/24 18:51 Temperature 97.5 F Pulse Rate 111 H Respiratory Rate 18 Blood Pressure 104/74 Pulse Oximetry 98 Oxygen Delivery Method Room Air BMI result Body Mass Index 35.0 Course Course Course Narrative: RME: Triage by BRAN Dillard. Patient presents for mechanical fall 2 or 3 days ago still having headache and also states bilateral ankle/knee pain. Patient states feeling dizzy since fall will do imaging. Positive for bilateral knee tenderness. HENT negative for signs of trauma. No obvious deformity. Patient has normal gait. Discharge Plan Discharge Clinical Impression: Fall Patient Disposition: Left W/O Completing Treatment Prescriptions: No Action clindamycin HCl 300 mg capsule 300 mg PO Q8H 7 Days Qty: 21 0RF levetiracetam [Keppra] 500 mg tablet 500 mg PO BID Qty: 60 0RF Discharge Date/Time: 01/07/24 22:43
--- NOTE | 2024-01-07 22:39 | PC.NURSE ---
Pt no answer from waiting room for reassessment. Did not notify staff of leaving.
== END 2024-01-07 22:43 | disposition left against medical advice (07) ==
LOC: HO.ED 22:42
PROVIDERS: Emergency Provider Emergency Medicine
DX: R51.9 Headache, unspecified (principal); R42 Dizziness and giddiness; M25.572 Pain in left ankle and joints of left foot; M25.571 Pain in right ankle and joints of right foot; M25.562 Pain in left knee; M25.561 Pain in right knee; Z91.81 History of falling
CPT/HCPCS: 70450; 71045; 72100; 72125; 73564; 73600; 73610; 99281; 99284

== ENCOUNTER 2024-05-05 13:35 | Outpatient (REF) | payer OTHER, SELFPAY ==
[2024-05-05 14:05] LABS: MANUAL DIFF FLAG NO
[2024-05-05 14:31] LABS: Basophils Percent Auto 0.4 % (0-2); Eosinophils Absolute Auto 0.1 X10*3/uL (0.0-0.4); Eosinophils Percent Auto 1.5 % (0-4); Hematocrit 44.9 % (42.0-52.0); Hemoglobin 14.6 g/dl (14.0-18.0); Imm Gran Abs Auto 0.03 X10*3/uL (0.00-0.03); Imm Gran Pct Auto 0.4 % (0.0-0.4); Lymphocytes Absolute Auto 2.7 X10*3/uL (1.2-4.9); Lymphocytes Percent Auto 39.9 % (20-40); Mean Corpuscular HGB Conc 32.5 g/dl (31.0-36.0); Mean Corpuscular Volume 92.4 fL (80.0-98.0); Mean Platelet Volume 9.4 fL (9.4-12.4); Monocytes Absolute Auto 0.4 X10*3/uL (0.1-1.2); Monocytes Percent Auto 5.3 % (2-11); Neutrophils Absolute Auto 3.5 x10*3/uL (2.0-8.3); Neutrophils Percent Auto 52.5 % (45-73); Platelet Count 289 X10*3/uL (160-400); Red Blood Count 4.86 X10*6/uL (4.60-5.80); Red Cell Distribution Width 13.2 % (11.0-16.0); White Blood Count 6.7 X10*3/uL (4.8-10.8)
[2024-05-05 14:39] LABS: Estimated Average Glucose 120 mg/dL; Hemoglobin A1C 146.0242 umol/L; Hemoglobin A1c % 5.8 % (<6.0)
[2024-05-05 15:34] LABS: Alanine Aminotransferase 36 U/L (0-40); Albumin Level 4.5 g/dL (3.5-5.0); Alkaline Phosphatase 122 U/L (39-117); Anion Gap 13 (12-20); Aspartate Amino Transferase 37 U/L (5-37); Bilirubin Total 0.2 mg/dL (0.0-1.0); Blood Urea Nitrogen 15 mg/dL (9-16); Calcium 9.9 mg/dL (8.4-10.2); Carbon Dioxide 25 mmol/L (22-29); Chloride 107 mmol/L (96-108); Cholesterol 260 mg/dL (<200); Estimated Glomerular Filt Rate > 60; Glucose Random 86 mg/dL (60-115); HDL Cholesterol 29 mg/dL (>40); LDL Cholesterol Calculated 178 mg/dL (<100); Potassium 4.3 mmol/L (3.3-5.1); Sodium 141 mmol/L (135-145); Triglycerides 266 mg/dL (<150)
[2024-05-05 15:50] LABS: Thyroid Stimulating Hormone 2.78 uIU/mL (0.32-4.0)
[2024-05-06 04:42] LABS: HBc Num1 0.16 S/CO (0.00-0.79); HBsAGNum1 0.24 S/CO (0.00-0.99); Hepatitis B Core Antibody Nonreactive (Nonreactive); Hepatitis B Surface Antigen Negative (Negative)
[2024-05-06 04:58] LABS: HBS Num1 0.11 mIU/mL (0-7.99); ~Hepatitis B Surface Antibody NONREACTIVE (Nonreactive)
[2024-05-09 17:58] LABS: Hepatitis B Viral DNA Qn-IU/mL NOT DETECTED
[2024-05-11 12:43] LABS: Hepatitis B Viral DNA QN Log NOT DETECTED
== END 2024-05-05 13:36 | disposition home or self-care (01) ==
LOC: HO.LAB 13:35
PROVIDERS: PCP Nurse Practitioner Family; Visit Provider Nurse Practitioner Family
DX: F31.32 Bipolar disorder, current episode depressed, moderate (principal); Z87.898 Personal history of other specified conditions; F43.9 Reaction to severe stress, unspecified
CPT/HCPCS: 36415; 80053; 80061; 83036; 84443; 85025; 86704; 86706; 87340; 87912

== ENCOUNTER 2024-09-12 11:53 | Emergency (ER) | payer OTHER, SELFPAY ==
[2024-09-12 12:07] VITALS: BP 149/105; PULSE 98; RESP 16; TEMP 36.9; O2SAT 97; BMI 31.9
--- NOTE | 2024-09-12 12:09 | ED_ITS ---
HPI - General Adult General Chief complaint: General Medical Stated complaint: medication dose wound check Time Seen by Provider: 09/12/24 12:21 Source: patient Mode of arrival: ambulatory Limitations: no limitations History of Present Illness ED Provider: JUDY SMITH PA-C HPI narrative: 34-year-old male with past medical history significant for polysubstance abuse on methadone presents to the ED today requesting his methadone dose. He states he is typically dosed with 170 mg at [facility] in [place]. He states his last dose was yesterday. Reports missing his dose this morning as he was unable to get to the clinic before they closed. Denies any physical complaints. Denies feeling as though he is withdrawing. Denies ilicit substance use. Denies EtOH consumption. Denies SI/HI. Denies AH/VH/TH. Related Data Home Medications ?Medication ?Instructions ?Recorded ?Confirmed methadone 10 mg/mL oral 170 mg PO DAILY 09/12/24 09/12/24 concentrate (Methadone Intensol) Previous Rx's ?Medication ?Instructions ?Recorded clindamycin HCl 300 mg capsule 300 mg PO Q8H 7 days #21 caps 09/17/20 levetiracetam 500 mg tablet 500 mg PO BID #60 tabs 01/01/22 (Keppra) Allergies Allergy/AdvReac Type Severity Reaction Status Date / Time No Known Allergies Allergy Verified 09/12/24 12:09 Review of Systems Review of Systems: Yes all other systems are reviewed and are negative PMFSH Past Medical History Attestation statement: The following information was validated with the patient. Source: old records reviewed and nursing notes reviewed Medical History Opioid dependence Social History Social History Alcohol intake: never Substance Use Type: Heroin Advance Directives: No Advance Directives Information Provided: No Do you have a plan to hurt others: No Plan Physical Exam ED Vital Signs: Vital Signs - 24 hr 09/12/24 12:07 Temperature 98.5 F Pulse Rate 98 Respiratory Rate 16 Blood Pressure 149/105 H Pulse Oximetry 97 Oxygen Delivery Method Room Air BMI result Body Mass Index 31.9 hypertensive, vitals otherwise wnl General: Well appearing, in no acute distress. Skin: Warm, dry, intact. No rashes or lesions. Head: Normocephalic, atraumatic. EENT: Hearing is intact b/l. Conjunctiva clear. PERRLA. EOM intact. Moist mucous membranes.? Neck: Supple without LAD Cardiac: Chest wall symmetric. RRR Lungs: Normal respiratory effort without accessory muscle use. CTA bilaterally Ext: Upper and lower extremities atraumatic, without tenderness, deformity, swelling or erythema Neuro: AOx3. Normal speech. Ambulating with steady gait. No tremors. No asterixis. Medications Administered Discontinued Medications Generic Name Dose Route Start Last Admin Trade Name Freneelima PRN Reason Stop Dose Admin Methadone HCl 170 mg 09/12/24 12:21 09/12/24 14:32 Methadone Hcl 20 Mg/2 Ml Oral.Conc PO 09/12/24 12:22 170 mg ONCE ONE Administration Medical Decision Making Medical Decision Making MDM Narrative: 34-year-old male with past medical history significant for polysubstance abuse on methadone presents to the ED today requesting his methadone dose. Hypertensive, vitals otherwise WNL. He is nontoxic-appearing and in no acute distress. No signs of active withdrawal. No tremors. Ambulating with steady gait. Physical exam is quite benign. Differential diagnosis includes methadone dependence, opioid abuse. Unlikely withdrawal versus overdose. Patient is last methadone dose confirmed at 170 mg on 09/10/2024 (2 days ago). Received pharmacy confirmation. 100 mg of methadone ordered and administered. Patient tolerated well. Advised him to follow up at his current clinic for his next dose tomorrow. Patient has remained stable throughout ED visit today. Discussed worrisome signs and symptoms and when to return to the ED. All questio ns answered at this time. Patient is agreeable with disposition and stable for discharge. Differential Diagnosis Differential Diagnoses: The differential diagnosis associated with the presentation includes as above. Admission/Observation not indicated. Chronic Conditions Patient?s care impacted by: Other (Methadone dependence, opiate abuse) Social Determinants Patient?s care significantly limited by Social Determinants of Health including: Alcoholism and drug addiction in family and Other Social Determinant of Health Critical Care Time Critical Care Time Critical Care Time: No Discharge Plan Discharge Clinical Impression: Methadone dependence Patient Disposition: Home, Self-Care Instructions: Methadone (By mouth), Opioid Use Disorder (ED) Additional Instructions: You were seen in the emergency department for methadone dosing. We called and verified your last dose, which is methadone 170mg, which was last given 09/10/2024. We had given you methadone 170 mg in the department today. Please follow-up with your methadone clinic tomorrow for additional dosing. If any new or worsening symptoms occur, including but not limited to chest pain or shortness a breath, please return for re-evaluation. Prescriptions: No Action clindamycin HCl 300 mg capsule 300 mg PO Q8H 7 Days Qty: 21 0RF levetiracetam [Keppra] 500 mg tablet 500 mg PO BID Qty: 60 0RF methadone [Methadone Intensol] 10 mg/mL Concentrate 170 mg PO DAILY Referrals: Pamela Heller NP [Primary Care Provider] - Interventions: ED Discharge Assessment Last Done: 09/12/24 14:42 Discharge Date/Time: 09/12/24 14:42 Print Language: Guyanese
--- NOTE | 2024-09-12 13:15 | HE.PHANOTE ---
Re Methadone Received dosing verification form from nursing. PAtient receives 170mg from [facility] in [place]
[2024-09-12] MEDS: methADONE HCl 20 MG/2 ML ORAL.CONC 170 MG PO (14:32)
[2024-09-12 14:42] VITALS: BP 149/105; PULSE 98; RESP 16; TEMP 36.9; O2SAT 97
== END 2024-09-12 14:42 | disposition home or self-care (01) ==
PROVIDERS: Emergency Provider Emergency Medicine; PCP Nurse Practitioner Family
DX: F11.20 Opioid dependence, uncomplicated (principal); I10 Essential (primary) hypertension; Z79.899 Other long term (current) drug therapy; Z71.51 Drug abuse counseling and surveillance of drug abuser
CPT/HCPCS: 99282; 99283

== ENCOUNTER 2025-08-24 22:11 | Emergency (ER) | payer MEDICAID, SELFPAY ==
[2025-08-24 22:51] VITALS: BP 157/92; PULSE 87; RESP 16; TEMP 36.8; O2SAT 97; BMI 35.1
--- NOTE | 2025-08-24 22:54 | ED.GENADULT ---
HPI - General Adult General Chief complaint: Nausea/Vomiting/Diarrhea Stated complaint: hasn't taken seizure meds in 2 days/vomiting Time Seen by Provider: 08/25/25 00:28 Source: patient, RN notes reviewed and old records reviewed Mode of arrival: ambulatory Limitations: no limitations History of Present Illness ED Provider: Cecilio FRAIRE narrative: 35-year-old male presents for evaluation of nausea, vomiting. Patient reports that he just got out of [facility] where he was for the last 5 months. He reports that he has been sick for about 2 days. He reports that he has not been able to get his medications refilled which includes gabapentin, Seroquel, prazosin, and Keppra. He also endorses body aches. Denies any chest pain, shortness of breath, abdominal pain pain He reports history of frequent episodes of vomiting. He does not follow up with GI Related Data Home Medications ?Medication ?Instructions ?Recorded ?Confirmed methadone 10 mg/mL oral 170 mg PO DAILY 09/12/24 09/12/24 concentrate (Methadone Intensol) Previous Rx's ?Medication ?Instructions ?Recorded clindamycin HCl 300 mg capsule 300 mg PO Q8H 7 days #21 caps 09/17/20 levetiracetam 500 mg tablet 500 mg PO BID #60 tabs 01/01/22 (Keppra) gabapentin 600 mg tablet 600 mg PO BID #60 tabs 08/25/25 levetiracetam 750 mg tablet 750 mg PO BID #60 tabs 08/25/25 (Keppra) prazosin 2 mg capsule 2 mg PO BEDTIME #30 caps 08/25/25 quetiapine 200 mg tablet (Seroquel) 200 mg PO BID #60 tabs 08/25/25 Allergies Allergy/AdvReac Type Severity Reaction Status Date / Time No Known Allergies Allergy Verified 08/24/25 22:56 Review of Systems Constitutional: Constitutional: Reports body ache(s), Reports chills, Denies fatigue, Reports fever(s) and Denies headache(s) Eyes: Eyes: Denies blurry vision ENT: Denies vertigo, Denies dizziness and Denies headache(s) Cardiovascular: Cardiovascular: Denies chest pain and Denies dyspnea on exertion Respiratory: Respiratory: Denies cough and Denies dyspnea on exertion Gastrointestinal: Gastrointestinal: Denies abdominal pain, Reports nausea and Reports vomiting Genitourinary: Genitourinary: Denies difficulty urinating and Denies dysuria Musculoskeletal: Musculoskeletal: Denies back pain Integumentary/Breasts: Skin/Breast: Denies rash Neurologic: Denies vertigo, Denies dizziness, Denies headache(s) and Denies seizure-like activity Psychiatric: Psychiatric: Reports anxiety Endocrine: Endocrine: Denies fatigue PMFSH Past Medical History Medical History Opioid dependence Social History Social History Alcohol intake: never Substance Use Type: Heroin Do you have a plan to hurt others: No Plan Physical Exam ED Vital Signs: Vital Signs - 24 hr 08/24/25 22:51 Temperature 98.3 F Pulse Rate 87 Respiratory Rate 16 Blood Pressure 157/92 H Pulse Oximetry 97 Oxygen Delivery Method Room Air BMI result Body Mass Index 35.1 Const General: healthy appearing, comfortable, no acute distress, alert and awake Nutritional Appearance: well nourished Orientation/consciousness: patient oriented x3 HENMT Head: Yes normocephalic and Yes atraumatic Eyes Eyelids: Yes eyelids normal Conjunctivae: conjunctivae normal Sclerae: sclerae normal Corneas: corneas normal Pupils: Equal, round and reactive pupils present EOM: EOMs intact bilaterally Neck Neck: Yes full ROM Resp Effort & Inspection: normal respiratory effort, able to speak in complete sentences and not labored GI Inspection: No distended Palpation (GI): Soft to palpation, not firm, nontender, no guarding and not rigid Skin General skin exam: elasticity normal Neuro General: patient oriented x3 Cranial nerves: Yes Equal, round and reactive pupils present and Yes Bilaterally intact EOM present Cognition (Neuro): normal cognition Extrem Other: Moving all extremities well without any obvious deformities Course Course Course Narrative: RME, this is a rapid medical exam performed by Jaswinder Hernandes please refer to primary provider for complete H&P- 35-year-old male presents for evaluation of nausea and vomiting. He reports that he was recently released from [facility]. He reports that he takes Keppra 750 mg twice daily and he has not had it in the last 3 days since his release. Plan for screening labs, viral swabs Medications Administered Discontinued Medications Generic Name Dose Route Start Last Admin Trade Name Freq PRN Reason Stop Dose Admin Ondansetron HCl 4 mg 08/24/25 22:57 08/24/25 22:59 Ondansetron Odt 4 Mg Tab.Napoleon BENÍTEZ 08/24/25 22:58 4 mg ONCE ONE Administration Medical Decision Making Medical Decision Making [facility] Narrative: 35-year-old male presents for evaluation of vomiting. He has no significant abdominal pain or tenderness [place] exam. [place] [address] which is likely demargination from his vomiting. He was ultimately negative for influenza, COVID-19 and RSV. He has a mild transaminitis which is chronic for him. Likely due to his history of substance abuse. I do not feel that a CT scan of the abdomen pelvis is indicated at this time. He is quite well appearing. Again no significant abdominal tenderness. He reports a frequent history of vomiting episodes but does not follow up with GI. A treated the patient with Zofran and I will refill his medications for a 1 month supply. I was able to verify them with his last outpatient pharmacy refills from [facility] in January of 2025 Differential Diagnosis Differential Diagnoses: The differential diagnosis associated with the presentation includes Vomiting Epilepsy Influenza COVID-19 Liver cirrhosis Hepatitis Admission/Observation Consideration of admission/observation: Escalation of care including admission/observation considered Lab Data [facility] Lab Attestation statement: I reviewed the patient's lab results. Mild leukocytosis as above, no significant anemia. Normal platelet count. No significant electrolyte abnormalities warranting dimension. BUN is slightly elevated at 21 unlikely to vomiting but creatinine within normal limits. 08/24/25 23:09 08/24/25 23:09 Labs: Lab Results 08/24/25 Range/Units 23:09 WBC 13.6 H (4.8-10.8) X10*3/uL RBC 4.91 (4.60-5.80) X10*6/uL Hgb 14.6 (14.0-18.0) g/dl Hct 42.3 (42.0-52.0) % MCV 86.2 (80.0-98.0) fL MCH 29.7 (27.0-33.0) pg MCHC 34.5 (31.0-36.0) g/dl RDW 12.1 (11.0-16.0) % Plt Count 334 (160-400) X10*3/uL MPV 8.6 L (9.4-12.4) fL Immature Gran % (Auto) 0.4 (0.0-0.4) % Neut % (Auto) 77.7 H (45-73) % Lymph % (Auto) 16.1 L (20-40) % [place] % (Auto) 5.5 (2-11) % Eos % (Auto) 0.0 (0-4) % Baso % (Auto) 0.3 (0-2) % Lymph # (Auto) 2.2 (1.2-4.9) X10*3/uL [place] # (Auto) 0.8 (0.1-1.2) X10*3/uL Eos # (Auto) 0.0 (0.0-0.4) X10*3/uL Baso # (Auto) 0.0 (0.0-0.2) X10*3/uL Abs Immat Gran (auto) 0.06 H (0.00-0.03) X10*3/uL Absolute Neuts (auto) 10.6 H (2.0-8.3) x10*3/uL Absolute Nucleated RBC 0.000 (0.0-0.012) X10*3/uL Nucleated RBC % (auto) 0.0 (0.0-0.2) /100WBC Sodium 140 (135-145) mmol/L Potassium 4.0 (3.3-5.1) mmol/L Chloride 103 (96-108) mmol/L Carbon Dioxide 24 (22-29) mmol/L Anion Gap 17 (12-20) BUN 21 H (9-16) mg/dL Creatinine 1.02 (0.5-1.4) mg/dL Estim Creat Clear Calc 120.7 Estimated GFR > 60 Random Glucose 142 H (60-115) mg/dL Calcium 10.2 (8.4-10.2) mg/dL Magnesium 2.3 (1.6-2.6) mg/dL Total Bilirubin 0.3 (0.0-1.0) mg/dL AST 74 H (5-37) U/L ALT 48 H (0-40) U/L Alkaline Phosphatase 103 (39-117) U/L Total Protein 9.1 H (6.5-8.0) g/dL Albumin 5.4 H (3.5-5.0) g/dL Lipase 16 (8-78) U/L Influenza Type A (PCR) NEGATIVE (Negative) Influenza Type B (PCR) NEGATIVE (Negative) RSV RNA Qual (PCR) NEGATIVE (Negative) SARS-CoV-2 RNA (RT-PCR) NEGATIVE (Negative) Tests considered The following testing was considered but not selected: Consider CT scan of the abdomen pelvis but ultimately deferred due to low suspicion for acute intra-abdominal pathology or surgical Discharge Plan Discharge Clinical Impression: Vomiting Patient Disposition: Home, Self-Care Instructions: Acute Nausea and Vomiting (ED) Additional Instructions: Your workup in the ER today was reassuring. Follow up with your primary doctor, return for new or worsening symptoms. I sent a months supply of your prescriptions Follow up with your primary doctor, return for new or worsening symptoms Prescriptions: New gabapentin 600 mg tablet 600 mg PO BID Qty: 60 0RF quetiapine [Seroquel] 200 mg tablet 200 mg PO BID Qty: 60 0RF levetiracetam [Keppra] 750 mg tablet 750 mg PO BID Qty: 60 0RF prazosin 2 mg capsule 2 mg PO BEDTIME Qty: 30 0RF No Action clindamycin HCl 300 mg capsule 300 mg PO Q8H 7 Days Qty: 21 0RF levetiracetam [Keppra] 500 mg tablet 500 mg PO BID Qty: 60 0RF methadone [Methadone Intensol] 10 mg/mL Concentrate 170 mg PO DAILY Print Language: Estonian
[2025-08-24 23:18] LABS: MANUAL DIFF FLAG NO
[2025-08-24 23:19] LABS: Hematocrit 42.3 % (42.0-52.0); Hemoglobin 14.6 g/dl (14.0-18.0); Imm Gran Abs Auto 0.06 X10*3/uL (0.00-0.03); Imm Gran Pct Auto 0.4 % (0.0-0.4); Lymphocytes Absolute Auto 2.2 X10*3/uL (1.2-4.9); Mean Corpuscular HGB Conc 34.5 g/dl (31.0-36.0); Mean Corpuscular Hemoglobin 29.7 pg (27.0-33.0); Mean Corpuscular Volume 86.2 fL (80.0-98.0); NRBC Abs Auto 0.000 X10*3/uL (0.0-0.012); NRBC Pct Auto 0.0 /100WBC (0.0-0.2); Platelet Count 334 X10*3/uL (160-400); Red Blood Count 4.91 X10*6/uL (4.60-5.80); White Blood Count 13.6 X10*3/uL (4.8-10.8)
[2025-08-24 23:40] LABS: Alanine Aminotransferase 48 U/L (0-40); Albumin Level 5.4 g/dL (3.5-5.0); Alkaline Phosphatase 103 U/L (39-117); Anion Gap 17 (12-20); Aspartate Amino Transferase 74 U/L (5-37); Blood Urea Nitrogen 21 mg/dL (9-16); Calcium 10.2 mg/dL (8.4-10.2); Carbon Dioxide 24 mmol/L (22-29); Chloride 103 mmol/L (96-108); Creatinine Clr Calc Pharmacy 120.7; Estimated Glomerular Filt Rate > 60; Lipase 16 U/L (8-78); Magnesium 2.3 mg/dL (1.6-2.6); Potassium 4.0 mmol/L (3.3-5.1); Sodium 140 mmol/L (135-145); Total Protein 9.1 g/dL (6.5-8.0)
[2025-08-24 23:55] LABS: Resp Syncy Virus RNA Qual PCR NEGATIVE (Negative); SARS COV2 PCR INHOUSE NEGATIVE (Negative)
--- OUTSIDE RECORDS SUMMARY | 2025-08-25 01:03 | XMS_ITS | Clinical Summary ---
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 20 tablet 09/24/2024 Active ibuprofen 600 MG tablet Take 1 tablet (600 mg) by mouth every 6 (six) hours if needed for mild pain for up to 20 doses. 20 tablet 09/24/2024 Active Active Problems Problem Noted Date Diagnosed Date Dental abscess 09/24/2024 Social History Tobacco Use Types Packs/Day Years Used Date Smoking Tobacco: Former Cigarettes Passive Smoke Exposure: Never Smokeless Tobacco: Former Tobacco Cessation:Counseling Given: Not Answered Alcohol Use Standard Drinks/Week Comments Defer 0 (1 standard drink = 0.6 oz pur e alcohol) Sex and Gender Information Value Date Recorded Sex Assigned at Male 06/25/2022 10:35 AM EDT Legal Sex Male 10:35 AM EDT Gender Identity Male 06/25/2022 10:35 AM EDT Sexual Orientation Choose not to disclose 2021 10:35 AM EDT Last Filed Vital Signs Vital Sign Reading Time Taken Comments Blood Pressure 98/68 09/24/2024 1:18 PM EST Pulse 97 01/19/2022 12:05 AM EDT Temperature - - Respiratory Rate - - Oxygen Saturation - - Inhaled Oxygen Concentration - - Weight 79.7 kg (175 lb 9.6 oz) 01/19/2022 12:05 AM EDT Height 170.2 cm (5' 7 ) 01/19/2022 12:05 AM EDT Body Mass Index 27.5 01/19/2022 12:05 AM EDT Plan of Treatment Health Maintenance Due Date Last Done Comments Dental Oral Exam 1992 Dental Prophylaxis 1992 Dental X-Ray: Bitewings 1992 Depression Screening 1992 SDOH Screening 1992 Disability Screening 1992 Alcohol/Substance Use Screening 2004 Family Planning (PISQ) 01/21/2007 HPV Vaccines (1 - Male 3-dose series) 01/21/2007 Hepatitis A Vaccines (1 of 2 - Risk 2-dose series) 01/21/2011 DTaP/Tdap/Td Vaccines (4 - Td or Tdap) 12/26/2022 12/26/2012, 09/12/2012, 06/08/2004, Additional history exists COVID-19 Vaccine ( - season) 2025 Influenza Vaccine (#1) 2025 09/01/2012 Tobacco Screening 09/24/2025 09/24/2024 Dental X-Ray: Full Mouth 09/25/2027 09/24/2024, 10/25 Zoster Vaccines (1 of 2) 01/21/2042 RSV Patients and Patients Aged 60 years or older (1 - 1-dose 75+ series) 01/21/2067 Hepatitis B Vaccines Completed 05/22/1993, 1992, 1992 Meningococcal Vaccine Aged Out 05/28/2006, 006 No longer eligible based on patient's age to complete this topic HIV Screening Completed 01/19/2022 HIB Vaccines Aged Out No longer eligi ble based on patient's age to complete this topic IPV Vaccines Aged Out No longer eligi ble based on patient's age to complete this topic Meningococcal B Vaccine Aged Out No l onger eligible based on patient's age to complete this topic Pneumococcal Vaccine: Pediatrics (0 to 5 Years) and At-Risk Patients (6 to 49) Years Aged Out No longer eligible based on patient's age to complete this topic RSV under 20 months Aged Out No longe r eligible based on patient's age to complete this topic Rotavirus Vaccines Aged Out No longer eligible based on patient's age to complete this topic Procedures Procedure Name Priority Date/Time Associated Diagnosis Comments PANORAMIC RADIOGRAPHIC IMAGE Routine 09/24/2024 1:00 PM EST HIV 1/2 ANTIGEN/ANTIBODY, FOURTH GENERATION W/RFL Routine 01/19/2022 1:13 PM EDT from Last 3 Months or Most Recently Relevant to Health Maintenance Results * HIV 1/2 ANTIGEN/ANTIBODY,FOURTH GENERATION W/RFL (01/19/2022 1:13 PM EDT) HIV-1/2 ANTIGEN AND ANTIBODIES, 4TH GENERATION W/ REFLEX NON-REACT RENEE NON-REACT RENEE [facility] Comment: HIV-1 antigen and HIV-1/HIV-2 antibodies were not detected. There is no laboratory evidence of HIV infection. PLEASE NOTE: This information has been disclosed to you from records whose confidentiality may be protected by state law. If your state requires such protection, then the state law prohibits you from making any further disclosure of the information without the specific written consent of the person to whom it pertains, or as otherwise permitted by law. A general authorization for the release of medical or other information is NOT sufficient for this purpose. For additional information please refer to http://education.[employer]/faq/BUD181 (This link is being provided for informational/ educational purposes only.) The performance of this assay has not been clinically validated in patients less than 2 years old. 01/19/2022 1:13 PM EDT us Bryan Jaimes MD LAB BLOOD ORDERABLES Final Resul t [facility] [address] from Last 3 Months or Most Recently Relevant to Health Maintenance Insurance [facility] ST[facility] ADULT
== END 2025-08-25 05:08 | disposition home or self-care (01) ==
PROVIDERS: Physician Assistant; Emergency Provider Emergency Medicine; PCP Nurse Practitioner Family
DX: R11.2 Nausea with vomiting, unspecified (principal); Z79.899 Other long term (current) drug therapy; Z03.818 Encounter for observation for suspected exposure to other biological agents ruled out
CPT/HCPCS: 80053; 83690; 83735; 85025; 87637; 99281